=== PATIENT | female | born 1995 | race Caucasian/White ===

== ENCOUNTER 2018-05-09 13:22 | Emergency (ER) | payer OTHER ==
[~2018-05-09] VITALS: Ht 162.6 cm; Wt 123.8 kg
[~2018-05-09 13:22] MED LIST: ALBU90OI INH; AMOX875 PO; Amoxicillin500 MG PO; Amoxicillin875 MG PO; BIRTH CONTROL; CEPH500 PO; CETYLOZ PO; CIPR500 PO; CODGUAEL PO; Flonase 0.05% N16 GM; IBUP600 PO; IBUP800 PO; MICROGESTIN FE PO; Norco 5-325 Ta1 EACH PO; Omeprazole20 M1 PO; PENVK500 PO; PHENA200 PO; PSEU120ER PO; Pyridium200 MG PO; RXOXYACE PO; Verotin-Gr Cap1 EACH PO; [UNRECOGNIZED DRUG - OTHER]
== END 2018-05-09 14:38 | disposition home or self-care (01) ==
LOC: ER 13:22
DX: M79.652 Pain in left thigh (principal); Z88.2 Allergy status to sulfonamides; Z88.1 Allergy status to other antibiotic agents
CPT/HCPCS: 93971; 99284-25

== ENCOUNTER → 2019-02-13 | Outpatient (CLI) | payer OTHER, SELFPAY | END | disposition home or self-care (01) | LOC: LAB SHORT 12:21 → PLD 12:21 | DX: R87.610 Atypical squamous cells of undetermined significance on cytologic smear of cervix (ASC-US) (principal); R87.810 Cervical high risk human papillomavirus (HPV) DNA test positive | CPT/HCPCS: 88305 ==